=== PATIENT | female | born 1975 | race Caucasian/White ===

== ENCOUNTER 2024-05-03 21:20 | Emergency (ER) | payer MEDICAID, OTHER ==
[~2024-05-03] VITALS: Ht 170.2 cm; Wt 86.3 kg
[2024-05-03 21:39] VITALS: BP 152/91; PULSE 99; RESP 18; TEMP 98.1; O2SAT 100
[2024-05-04 00:57] LABS: BASOPHILS # (AUTO) 0.1 K/uL (0.00-0.22); BASOPHILS % (AUTO) 0.5 % (0.0-2.0); EOSINOPHILS % (AUTO) 0.2 % (0.0-4.0); HEMATOCRIT 36.6 % (36-48); HEMOGLOBIN 12.3 g/dL (12.0-16.0); LYMPHOCYTES % (AUTO) 17.1 % (20.5-51.1); MEAN CORPUSCULAR HEMOGLOBIN 29 pg (27-31); MEAN CORPUSCULAR HGB CONC 34 g/dL (33-37); MEAN CORPUSCULAR VOLUME 87.1 fL (80-94); MONOCYTES # (AUTO) 0.3 K/uL (0.8-1.0); MONOCYTES % (AUTO) 2.7 % (1.7-9.3); NEUTROPHILS # (AUTO) 9.1 K/uL (1.8-7.7); NEUTROPHILS % (AUTO) 79.5 % (42.2-75.2); PLATELET COUNT (AUTO) 309 K/uL (140-450); RED CELL DISTRIBUTION WIDTH 13.4 % (11.6-13.7); WHITE BLOOD COUNT (AUTO) 11.5 K/uL (4.8-10.8)
[2024-05-04 01:06] LABS: CALCIUM 8.7 mg/dL (8.5-10.1); CREATININE 0.9 mg/dL (0.6-1.3)
[2024-05-04] MEDS: IBUPROFEN 800 MG TAB PO ONE (02:54)
== END 2024-05-04 04:26 | disposition home or self-care (01) ==
LOC: MED 21:20
DX: R20.2 Paresthesia of skin (principal); R53.1 Weakness; M79.602 Pain in left arm; R20.0 Anesthesia of skin; M54.2 Cervicalgia
CPT/HCPCS: 36415; 70450; 72125; 80048; 84484; 85025; 93005; 99284